=== PATIENT | female | born 1970 | race Caucasian/White ===

== ENCOUNTER 2017-09-28 12:18 | Emergency (ER) | payer OTHER ==
[~2017-09-28] VITALS: Ht 180.3 cm; Wt 122.5 kg
[2017-09-28] MEDS ORDERED: COZAAR100 MG (13:05)
== END 2017-09-28 16:14 | disposition home or self-care (01) ==
LOC: ER 12:18
DX: M54.31 Sciatica, right side (principal); R30.0 Dysuria; M17.11 Unilateral primary osteoarthritis, right knee